=== PATIENT | female | born 1980 | race Caucasian/White ===

== ENCOUNTER 2017-06-04 22:40 | Emergency (ER) | payer SELFPAY ==
[2017-06-05] MEDS: LABETALOL HCL 20MG INJ IV (00:02)
[2017-06-05 00:08] LABS: ADD MAN DIFF? NO
[2017-06-05] MEDS: NIFEdipine (XL) 30 MG TAB PO (00:09)
[2017-06-05 00:15] LABS: BASOPHIL # 0.1 10^3/ul (0.0-0.1); BASOPHILS % 0.5 % (0.0-2.0); EOSINOPHILS # 0.2 10^3/ul (0.0-0.5); EOSINOPHILS % 2.5 % (0.0-7.0); HEMATOCRIT 37.5 % (37.0-47.0); HEMOGLOBIN 13.2 g/dl (12.0-16.0); LYMPHOCYTES # 2.6 10^3/ul (0.8-2.9); LYMPHOCYTES % 27.7 % (15.0-51.0); MEAN CORPUSCULAR HEMOGLOBIN 28.4 pg (29.0-33.0); MEAN CORPUSCULAR HGB CONC 35.2 g/dl (32.0-37.0); MEAN CORPUSCULAR VOLUME 80.8 fl (82.0-101.0); MEAN PLATELET VOLUME 9.8 fl (7.4-10.4); MONOCYTE # 0.6 10^3/ul (0.3-0.9); MONOCYTES % 6.5 % (0.0-11.0); NEUTROPHIL # 5.8 10^3/ul (1.6-7.5); NEUTROPHILS % 62.4 % (39.0-77.0); PLATELET COUNT 306 10^3/UL (140-415); RED BLOOD COUNT 4.64 10^6/ul (4.20-5.40); RED CELL DISTRIBUTION WIDTH 13.2 % (11.5-14.5)
[2017-06-05 00:15] LABS: WHITE BLOOD COUNT 9.4 10^3/ul (4.8-10.8)
[2017-06-05 00:37] LABS: ALANINE AMINOTRANSFERASE 41 IU/L (13-69); ALBUMIN 4.9 g/dl (3.3-4.9); ALBUMIN/GLOBULIN RATIO 1.58; ALKALINE PHOSPHATASE 123 IU/L (42-121); ANION GAP 18 (8-16); ASPARTATE AMINO TRANSFERASE 28 IU/L (15-46); BILIRUBIN,INDIRECT 0.1 mg/dl (0-1.1); BILIRUBIN,TOTAL 0.1 mg/dl (0.2-1.3); BLOOD UREA NITROGEN 8 mg/dl (7-20); CALCIUM 9.6 mg/dl (8.4-10.2); CARBON DIOXIDE 28 mmol/L (21-31); CHLORIDE 101 mmol/L (97-110); CREATININE 0.51 mg/dl (0.44-1.00); GLUCOSE 104 mg/dl (70-220); POTASSIUM 3.2 mmol/L (3.5-5.1); SODIUM 144 mmol/L (135-144)
[2017-06-05 00:45] LABS: B-TYPE NATRIURETIC PEPTIDE 36 PG/ML (0-125)
[2017-06-05] MEDS: POTASSIUM CHLORIDE (SR) 20 MEQ TAB PO (02:04)
== END 2017-06-05 02:17 | disposition home or self-care (01) ==
LOC: E/R 22:40
DX: R60.0 Localized edema (principal); I10 Essential (primary) hypertension; E87.6 Hypokalemia; R40.2142 Coma scale, eyes open, spontaneous, at arrival to emergency department; R40.2252 Coma scale, best verbal response, oriented, at arrival to emergency department; R40.2362 Coma scale, best motor response, obeys commands, at arrival to emergency department; R06.02 Shortness of breath
CPT/HCPCS: 36415; 71045; 80053; 81025; 83880; 85025; 93005; 93970; 96374; 99285-25